=== PATIENT | female | born 1975 | race Caucasian/White ===

== ENCOUNTER 2023-05-20 13:06 | Outpatient (OUT) | payer OTHER, SELFPAY | END 2023-05-20 13:07 | disposition home or self-care (01) | LOC: PST 13:06 | PROVIDERS: Family Provider Family Medicine; PCP Family Medicine; Visit Provider Surgery | DX: Z01.818 Encounter for other preprocedural examination (principal); K59.00 Constipation, unspecified ==

== ENCOUNTER 2023-05-25 10:00 | Day surgery (SDC) | payer OTHER, SELFPAY ==
[2023-05-25 10:05] VITALS: BP 129/65; PULSE 96; TEMP 36.2; O2SAT 95; BMI 60.0
[2023-05-25 10:24] LABS: HCG Qualitative NEGATIVE (NEGATIVE)
--- NOTE | 2023-05-25 10:28 | PM.GSPRC ---
Date of procedure: 05/25/23 Indications for Procedure: constipation Pre-op diagnosis: constipation Procedure: colonoscopy Findings: normal colon Anesthesia: MAC Surgeon: Johny Menjivar Procedure Summary: PROCEDURE: The patient was taken to the Endoscopy Suite, placed in the left lateral recumbent position, given IV sedation as above. A rectal digital exam was performed. The sphincter tone was found to be normal. No rectal masses were appreciated. The Olympus video colonoscope was advanced under direct visualization to the rectum, sigmoid colon, descending colon, transverse colon and ascending colon to the ileocecal valve. The underside of the valve was seen. The scope was slowly withdrawn with air being desufflated as it was withdrawn. No gross tumors, polyps or diverticula were seen. prep was good.The patient tolerated the procedure well and went to the Recovery Area in satisfactory condition. I recommend the patient use a bulk laxative on a regular basis and follow up as needed.patient needs repeat colonoscopy in ten years unless problems. Estimated blood loss (mL): 0 Complications: No Pathology: none sent Condition: stable Disposition: PACU
[2023-05-25] MEDS: LACTATED RINGER'S SOLUTION 1,000 ML 50 ML IV (10:33)
[2023-05-25 11:07] VITALS: BP 150/92; PULSE 103; TEMP 36.3; O2SAT 97
[2023-05-25 11:22] VITALS: BP 121/75; PULSE 100; O2SAT 95
[2023-05-25 11:37] VITALS: BP 133/67; PULSE 85; O2SAT 97
== END 2023-05-25 11:44 | disposition home or self-care (01) ==
PROVIDERS: Family Provider Family Medicine; PCP Family Medicine; Visit Provider Surgery
PROC: (CPT 811; principal; 2023-05-25 11:05)
DX: K59.00 Constipation, unspecified (principal); R10.32 Left lower quadrant pain; G91.9 Hydrocephalus, unspecified; E66.01 Morbid (severe) obesity due to excess calories; J45.909 Unspecified asthma, uncomplicated; Z68.44 Body mass index [BMI] 60.0-69.9, adult
CPT/HCPCS: 45378; 36415; 84703; J2704